=== PATIENT | female | born 1945 | race Caucasian/White ===

== ENCOUNTER → 2020-06-09 11:46 | Outpatient (BNVA) | payer MEDICARE, OTHER, SELFPAY | PROVIDERS: Family Provider Family Medicine; PCP Family Medicine; Visit Provider Internal Medicine Cardiovascular Disease | DX: I48.92 Unspecified atrial flutter (principal); Z51.81 Encounter for therapeutic drug level monitoring; Z79.899 Other long term (current) drug therapy | CPT/HCPCS: 80048; 80162; 83735 ==

== ENCOUNTER 2020-07-30 05:31 | Day surgery (SDC) | payer MEDICARE, OTHER, SELFPAY ==
[2020-07-29 14:34] VITALS: BMI 14.6
[2020-07-30] VITALS (18 sets, daily range): BP systolic 89–140; BP diastolic 64–93; PULSE 77–139; RESP 12–27; TEMP 36.1–36.6; O2SAT 88–100
--- NOTE | 2020-07-30 | CT_ITS ---
Guided Bronchoscopy Planning CT images; total exam DLP: 732.43 mGy-cm MTDD
--- NOTE | 2020-07-30 05:34 | ECG_ITS ---
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 Measurements Intervals [place] Rate: 126 P: AR: QRS: 110 QRSD: 129 T: -61 QT: 319 QTc: 463 Interpretive Statements ATRIAL FIBRILLATION WITH RAPID VENTRICULAR RESPONSE MARKED RIGHT AXIS DEVIATION [QRS AXIS > 100] RIGHT BUNDLE BRANCH BLOCK MODERATE T-WAVE ABNORMALITY, CONSIDER INFERIOR ISCHEMIA Compared to ECG 03/16/2019 21:00:31 Right-axis deviation now present Sinus rhythm no longer present Atrial abnormality no longer present Left posterior fascicular block no longer present T-wave abnormality still present Possible ischemia still present Electronically Signed On 07-30-2020 22:12:09 HARNESSMAKER APPRENTICE by Fany Al M.D. [id number]
--- NOTE | 2020-07-30 05:50 | W.PM.OPSUD ---
Surgery/Procedure H&P Update DATE OF PROCEDURE: July 30, 2020 DATE H&P PERFORMED: 07/27/20 H&P UPDATE INFORMATION: I have reviewed H&P completed within last 30 days, I have examined patient prior to procedure and No changes to prior documentation PREOP DIAGNOSIS: suspected Lung cancer PLANNED PROCEDURE: Bronchoscopy with inspection of the airway, possible endobronchial biopsies, navigational bronchoscopy guided transbronchial biopsy of the left lower lobe lung mass, fine-needle aspiration and Cytobrush, endobronchial sound guided transbronchial needle aspiration of lymph nodes and control of bleeding Ultrasound-guided left-sided thoracentesis. Operation Date: 07/30/20 07:00 Proposed Procedures p Bronchoscopy(Not Applicable) - Reji Rodgers MD s Veran(Not Applicable) - Reji Rodgers MD s Thoracentesis(Not Applicable) - Reji Rodgers MD
[2020-07-30] MEDS: sodium chloride 0.9% 1,000 ML 30 ML IV (06:06)
--- NOTE | 2020-07-30 06:39 | PM.ACPR ---
Procedure/Consent Time out: Time Out Performed: Yes Consent: Consent for Procedure: Consent obtained from patient Procedure Narrative: Name of the procedure: Ultrasound-guided left thoracentesis. Indication: Suspicion for malignant pleural effusion Anesthetics: Local anesthesia with 1% lidocaine. IV pain medication: None. Description of the procedure: The procedure was explained to the patient in detail including the risks and a consent was obtained. The left hemithorax was scanned with ultrasound to find a safe fluid pocket. Moderate free-flowing fluid was noted. There was no complexity. Positive plankton sign. Following identification of the fluid pocket the site was marked. The site was cleaned using sterile technique. Lidocaine 1% was injected into the skin and the subcutaneous tissue. Subsequently, the periosteum in the parietal pleural was also anesthetized using lidocaine. The pleural space was entered in the posterior axillary line in the left eighth intercostal space. Anya-colored fluid was aspirated. About 450 cc of fluid was aspirated Sample: The pleural fluid was sent for cell count and differential, pH, protein, LDH, albumin, Gram stain and culture, fungal stain and culture, AFB stain and culture and cytology. Acute Procedures Epistaxis Control: Time out performed: Yes
--- NOTE | 2020-07-30 06:44 | PC.NURSE ---
Addendum entered by Franci Bangura LPN 07/30/20 07:19: PT TOLERATED PROCEDURE WELL. [address] SCAN Original Note: THORACENTESIS PERFORMED BY DR. CAMARENA. 450 ML FARSHAD FLUID REMOVED. SPECIMENS SENT TO LAB AND TO PATHOLOGIST.
--- NOTE | 2020-07-30 07:01 | ANES.PREANE2 ---
Pre-Anesthetic Assessment Pre-Anesthetic Assessment: Height/Weight: Height 1.57 m Weight 36.287 kg Temp Pulse Resp BP Pulse Ox 97 F L 121 H 16 100/66 100 07/30/20 05:50 07/30/20 05:50 07/30/20 05:50 07/30/20 05:50 07/30/20 05:50 Preop Diagnosis: suspected Lung cancer Proposed Procedure: Operation Date: 07/30/20 07:00 Proposed Procedures p Bronchoscopy(Not Applicable) - Reji Rodgers MD s Veran(Not Applicable) - Reji Rodgers MD s Thoracentesis(Not Applicable) - Reji Rodgers MD Was Beta Cadence taken within 24 hours: Yes Last intake: Intake Last Liquid Date 07/29/20 Last Liquid Time 19:00 Last Solid Date 07/29/20 Last Solid Time 19:00 Social: Social History: Tobacco and No alcohol Exam: Pre-Anes Outpt Exam: alert, oriented x 3 and regular rate & rhythm Additional Exam Findings (including area of procedure): right rhonchi/decreased Airway: Submandibular: WNL Cervical ROM: WNL MP: 2 Dentition: False Pulmonary: Pulmonary: COPD and Cough Comments: Home O2, pleural effusion CV/HEM: CV/HEM: Arrythmia (A.flutter with RVR) Comments: Pulmonary HTN, cor pulmonale : : Chronic renal Insufficiency Musc/skel: Musc/skel: OA/DJD Anesthetic Plan: ASA status: 4 Anesthesia: General Risk of > 500 ml blood loss (7ml/kg in children): No Meds/Allergies Current Medications: Current Medications Generic Name Dose Route Start Last Admin Trade Name Freq PRN Reason Stop Dose Admin Sodium Chloride 1,000 mls @ 30 ml s/hr 07/30/20 06:00 07/30/20 06:06 Sodium Chloride 0.9% IV 30 mls/hr .Q24H MARY GRACE Administration PFSH Anesthesia PFSH: Medical History Atrial flutter COPD (chronic obstructive pulmonary disease) Hypertension Lung mass Family History Other Cancer Emphysema lung Myocardial infarction Social History Smoking and tobacco status: current every day smoker cigarettes Years cigarettes smoked: 50 [ Other cigarette details: Hx of 1.5 PPD ] Quit status (tobacco): considering quitting Smoking risk assessment/counseling performed?: Yes Alcohol intake: never Counseling given: No Counseling given: No Lives independently: Yes Household members: spouse Marital status: Current occupational status: retired History of recent travel: No Current gender identity: Female Data Anesthesia Cardiac Studies: No Data to Display
[2020-07-30 07:17] LABS: Body Fluid Polynuclear #Cells 0.393; Body Fluid WBC 2373 /uL
[2020-07-30 07:21] LABS: Apprearance, Body Fluid CLOUDY; Color, Body Fluid YELLOW
[2020-07-30 07:31] LABS: LDH Pleural Fluid 290 U/L; Total Protein Pleural Fluid 3.7 g/dL
[2020-07-30] MEDS: lidocaine 1% INJ 20 mL XX (07:50)
--- NOTE | 2020-07-30 08:58 | P.OP_ITS ---
Operative Report Date of procedure: July 30, 2020 Pre-op Diagnosis: suspected Lung cancer Post-op diagnosis: same Brief History: This is a 75-year-old lady coming in for bronchoscopic evaluation for suspected lung cancer Procedure: Name of the procedure: Bronchoscopy with inspection of the airway, bronchoalveolar lavage, endobronchial biopsies, endobronchial ultrasound-guided transbronchial needle aspiration of lymph nodes and control of bleeding. Indication: Suspected lung cancer Anesthesia: General anesthesia. Local anesthesia: The vocal cords were anesthetized with 1% lidocaine, 3 mL, the trachea, right and mainstem bronchi anesthetized with 1% lidocaine. Description of the procedure: The procedure was explained to the patient and the consent was obtained. The patient was brought to the OR. The patient underwent laryngeal mask airway placement for general anesthesia. Following induction of general anesthesia, the bronchoscope was advanced through the LMA. The vocal cords appeared normal. The upper and lower lower trachea appeared to be erythematous, no endotracheal lesion was seen. The sol was splayed. The sol, the right and left mainstem bronchi are anesthetized with 1% lidocaine. In a systematic manner bilateral bronchial tree was then examined. There was visible mucus occluding the left mainstem bronchus. The left mainstem bronchus mucus was suctioned out. Irregular mucosa in the left mainstem bronchus with pearly white appearance was noted. The bronchoscope was advanced into the left upper lobe bronchus after all the mucus was cleared out. The left upper lobe, lingular bronchi appeared erythematous without any endobronchial lesion. The bronchoscope was then advanced into the left lower lobe bronchus. There was significant narrowing of the left lower lobe bronchus due to external compression. No endobronchial lesion was identified. There was also significant mucus collection that was cleared out. The left lower lobe bronchi al segments could not be evaluated in detail because of the external compression and narrowing of the openings. The bronchoscope was then introduced into the right mainstem bronchus. The right upper lobe, right middle lobe and right lower lobe bronchi were examined up to the third subsegmental level and no abnormalities were identified. There was diffuse erythema in the right lung. Bronchoalveolar lavage was performed from the left lower lobe. 60 mL of fluid was instilled, 20 mL of bloody fluid was returned. Endobronchial biopsies were performed from the left mainstem bronchus. Multiple samples were obtained. The endobronchial ultrasound was introduced through the LMA. Mediastinal and hilar lymphadenopathy was identified with the ultrasound. Transbronchial needle aspiration was performed from station 7 and 11 L lymph node stations. Samples: 1. Bronchoalveolar lavage specimen was sent for Gram stain and culture, fungal stain and culture, AFB stain and culture and cytology. 2. The endobronchial biopsies are sent for histopathology. 3. The fine-needle aspirations were sent for histopathology. . Complications: There was no immediate complications.
--- NOTE | 2020-07-30 10:02 | SUR.OPER ---
ebus balloon removed intact
--- NOTE | 2020-07-30 10:14 | XR_ITS ---
WS: [id number] Exam: XR chest 1V portable [id number] Date/Time of Exam: 07/30/2020 10:14 AM Reason For Exam: POST OP Comparison 05/24/2018. There is complete white out of the lower two thirds of the left pleural cavity. This may represent co nsolidating pneumonia and/or atelectasis, mass or pleural effusion. There is a left pleural effusion identified. There is also right basal pleural effusion with infiltrate and atelectasis in the right l ower lobe. The heart is probably enlarged. The chest is rotated. No pneumothorax. Regional bony struc tures are unremarkable. XR/XR chest 1V portable [id number] IMPRESSION: 1. Complete white out of the lower two thirds of the left pleural cavity which may be secondary to the atelectasis and/or infiltrate, a mass or extensive pleu ral effusion. 2. Bilateral pleural effusions are visualized. 3. Atelectasis and infiltrate in the right lower lobe. 4. Cardiac enlargement. There may also be some cardiomediastinal shift to the l eft secondary to atelectasis and volume loss of the left lung.
--- NOTE | 2020-07-30 10:24 | ANE.PACU2 ---
Inpatient post-anesthesia follow up: Airway intact: Yes Vital signs: Temperature 97.7 F Pulse Rate 77 Respiratory Rate 16 Blood Pressure 129/64 Pulse Oximetry 94 Oxygen Delivery Me thod Simple Mask Oxygen Flow Rate 8 Fraction of Inspir ed Oxygen Nausea and vomiting: No Pain level: 1 Additional Comments: A little sedated, following commands.
[2020-07-30 10:59] LABS: ABG PH Result 7.21 (7.35-7.45); Arterial Blood Gas Hematocrit 41.4 % (37-47); Base Excess ABG -0.2 mmol/L (-2.0-2.0); Blood Gas Allen Test Pos; Blood Gas Operator Identificat CAK; Blood Gas Sample Site Brachial, right; Blood Gas Sample Type Arterial; Carboxyhemoglobin 1.1 %THgb (0.4-20.1); HCO3 ABG 29.5 mmol/L (22-26); HGB O2 Sat 87.1 % (95-100); Ionized Calcium Level - ABG 1.3 mmol/L (1.1-1.4); Methemoglobin 0.7 % (0.4-1.5); Oxygen Device SIMPLE MASK; Oxygen Saturation ABG 88.7; PO2 ABG 64.5 mmHg (80.0-100.0); Potassium Level - ABG 4.4 mmol/L (3.5-5.0); Total Hemoglobin 13.5 g/dL (12-16)
[2020-07-30 11:00] LABS: ABG PCO2 73.3 mmHg (35-45)
--- NOTE | 2020-08-03 13:25 | PTH.FRZRPT ---
Frozen Section Notes Specimen(s): Lung, left main bronchus, endobronchial biopsy Gross: The specimen is received fresh in a single slide labeled with the patient's name and MRN number and additionally labeled, left main bronchus and is a 1 mm fragment that is submitted for frozen section diagnosis. The fragment is submitted in cassette FS A1. Preliminary Impression: Lung, left main bronchus, endobronchial biopsy: ?Positive for malignancy. - Specimen Information Pathologist: Danielle Riggs Date: 07/30/20 Specimen reported at what time: 08:25 - Clinician Specimen collection time: 08:09 Clinician reported to: Reji Rodgers
--- NOTE | 2020-08-03 13:27 | PTH.EBUS ---
Endobronchial Ultrasound Specimen(s): 3 specimens received, left main bronchus, lymph node station 7, station 11 Gross: The specimens are received on 3 slides labeled with the patient's name and MRN number.'s. Specimen A, left main bronchus . Specimen B, lymph node station 7 . Specimen C, lymph node station 11 . Preliminary Impression: A. Lung, left main bronchus, cytology: ?Positive for malignancy. B. Lymph node, station 7, cytology: ?Positive for malignancy. C. Lymph node, station 11, cytology: ?Positive for malignancy. - Specimen Information Pathologist: Danielle Riggs Date: 07/30/20 Specimen reported at what time: 08:25 - Clinician Specimen collection time: 08:05 Clinician reported to: Reji Rodgers
== END 2020-07-30 12:16 | disposition home or self-care (01) ==
PROVIDERS: PCP Family Medicine; Visit Provider Internal Medicine Critical Care Medicine
PROC: 0BJ08ZZ Inspection of Tracheobronchial Tree, Via Natural or Artificial Opening Endoscopic (ICD-10-PCS; CPT 31622; principal; 2020-07-30 07:00)
PROC: BB4BZZZ Ultrasonography of Pleura (ICD-10-PCS; 2020-07-30 07:00)
DX: C34.90 Malignant neoplasm of unspecified part of unspecified bronchus or lung (principal); J44.9 Chronic obstructive pulmonary disease, unspecified; Z99.81 Dependence on supplemental oxygen; M19.90 Unspecified osteoarthritis, unspecified site; I10 Essential (primary) hypertension; F17.210 Nicotine dependence, cigarettes, uncomplicated; Z79.52 Long term (current) use of systemic steroids; I48.92 Unspecified atrial flutter
CPT/HCPCS: 12345; 31625; 31627; 36600; 71045; 77011; 80051; 80500; 82330; 82805; 82945; 83605; 83615; 83986; 84157; 87015; 87070; 87075; 87077; 87102; 87116; 87186; 87205; 87206; 87801; 88112; 88305; 89050; 93005; J2704; J7030

== ENCOUNTER 2020-08-03 17:07 | Emergency (ER) | payer MEDICARE, OTHER, SELFPAY ==
[2020-08-03 17:30] VITALS: BP 78/50; PULSE 129; RESP 12; TEMP 36.1; O2SAT 92; BMI 15.5
--- NOTE | 2020-08-03 18:16 | XR_ITS ---
WS: [id number] PORTABLE CHEST HISTORY: Arrhythmia. COMPARISON: 07/30/2020 Chronic emphysema. Bilateral pleural effusions. Moderate LEFT pleural effusion has improved slightly since the prior study. There is a small RIGHT pleural effusion which may have slightly increased. Com pressive atelectasis at the lung bases from the effusions. Cardiac size: Silhouette is obscured by the effusions. Mediastinum/Aorta: Moderate atherosclerosis aorta. No osseous abnormality seen. XR/XR chest 1V portable [id number] IMPRESSION: 1. Moderate LEFT and small RIGHT pleural effusions. 2. Chronic emphysema.
--- NOTE | 2020-08-03 19:08 | W.ED.ARRPALP ---
HPI - Arrhythmia/Palpitations General: Chief Complaint: Arrhythmia/Palpitations Stated Complaint: IRREGULAR HEARTBEAT, DEHYDRATED Time Seen by Provider: 08/03/20 18:49 Source: patient and family Mode of arrival: ambulatory Limitations: no limitations History of Present Illness: HPI narrative: Patient is a 75-year-old female who states that she had a lung biopsy along with fluid drained last week and is found out it is cancerous. She states she been having increasing weakness and more shortness of breath. She denies any fevers. Patient is very frail appearing and ill-appearing. Patient is on 3 L oxygen at baseline and is on 4 L here. She denies any worsening improving factors. Dr. Rodgers is her nuclear medical technologist. [facility] ED PFSH: Medical History Atrial flutter COPD (chronic obstructive pulmonary disease) Hypertension Lung mass Family History Other Cancer Emphysema lung Myocardial infarction Social History Smoking and tobacco status: current every day smoker cigarettes Years cigarettes smoked: 50 [ Other cigarette details: Hx of 1.5 PPD ] Quit status (tobacco): considering quitting Smoking risk assessment/counseling performed?: Yes Alcohol intake: never Counseling given: No Counseling given: No Lives independently: Yes Household members: spouse Marital status: Current occupational status: retired History of recent travel: No Current gender identity: Female Physical Exam Const: COMMON NORMALS: patient oriented x3 GENERAL APPEARANCE: ill appearing and frail appearing HENMT: COMMON NORMALS: normocephalic and atraumatic HEAD & SCALP: normocephalic and atraumatic Eye: COMMON NORMALS: Equal, round and reactive pupils present and EOMs intact bilaterally PUPIL: Yes Equal, round and reactive pupils present Neck/C-Spine: COMMON NORMALS: full ROM and supple Chest: COMMONS NORMALS: normal inspection of the chest and normal palpation of entire chest wall Resp: COMMON NORMALS: No retractions and No use of accessory muscles AUSCULTATION: rales and rhonchi Cardio: COMMON NORMALS: regular rhythm and No murmurs present (Cardio) RATE: tachycardic RHYTHM: regular rhythm GI: COMMON NORMALS: Normal to inspection, nondistended, normoactive bowel sounds present, Soft to palpation, non-tender and no masses PALPATION: Yes Soft to palpation Extremity: COMMON NORMALS: normal to inspection and full ROM Neuro: COMMON NORMALS: patient oriented x3, moves all extremities and no focal motor deficits Psych: COMMON NORMALS: mental status grossly normal, Normal thought process present and cooperative THOUGHT PROCESS: Normal thought process present Skin: COMMON NORMALS: no rashes or lesions noted and no wounds GENERAL SKIN EXAM: no rashes or lesions noted Course Vital Signs: Vital signs: Vital Signs Temperature 96.9 F L 08/03/20 17:30 Pulse Rate 139 H 08/03/20 19:45 Respiratory Rate 32 H 08/03/20 19:45 Blood Pressure 87/67 08/03/20 19:45 Pulse Oximetry 96 08/03/20 19:45 MDM - Arrhythmia/Palpitations MDM Narrative: Medical decision making narrative: Gladys presents here with dyspnea. I spoke to Dr. Rodgers and patient likely has stage IV lung cancer. I spoke to her her family and her at length and informed her of the diagnosis and I spoke to Dr. Rodgersabout her likely prognosis and that it is very very poor. I did give patient family options of admitting and also spoke to them about hospice. Patient would like to go home and to be set up on hospice which I believe is the appropriate choice. Lab Data: Labs: Lab Results 08/03/20 08/03/20 08/03/20 Range/Units 19:20 19:20 19:20 WBC 11.1 H (4.0-10.0) 10^3/ uL RBC 4.14 (4.1-5.3) 10^6/u L Hgb 13.8 (11.5-15.3) g/dL Hct 44.2 (37.0-47.0) % MCV 106.8 H (81-99) fL MCH 33.3 (28.0-34.0) pg MCHC 31.2 (30.0-36.0) g/dL RDW 14.2 (12.1-15.1) % Plt Count 462 H (130-400) 10^3/c mm MPV 10.0 (7.4-10.4) fL Neut % (Auto) 92.0 % Lymph % (Auto) 3.0 % Citrus % (Auto) 3.0 % Eos % (Auto) 0.9 % Baso % (Auto) 0.4 % Neut # (Auto) 10.24 H (1.8-7.7) 10^3/u L Lymph # (Auto) 0.3 L (0.8-4.8) 10^3/u L Citrus # (Auto) 0.3 (0.2-0.9) 10^3/u L Eos # (Auto) 0.1 (0.0-0.8) 10^3/u L Baso # (Auto) 0.0 (0.0-0.1) 10^3/u L Nucleated RBC % (a uto) 0.2 % Nucleated RBCs # 0.0 /100WBC PT 20.40 H (12.1-14.9) SECO NDS INR 1.69 H (0.8-1.2) Sodium 140 (136-145) mmol/L Potassium 5.1 (3.5-5.1) mmol/L Chloride 98 (98-107) mmol/L Carbon Dioxide 30 H (22-29) mmol/L Anion Gap 17.1 (5-19) BUN 38 H (8-23) mg/dL Creatinine 0.7 (0.5-0.9) mg/dL GFR Calculation Not Reportable Glucose 116 H (65-115) mg/dL Calculated Osmolal ity 300 H (285-295) mOsm/k g Lactate (0.5-2.2) mmol/L Calcium 9.1 (8.5-10.5) mg/dL Total Bilirubin 0.4 (0.15-1.2) mg/dL AST 21 (0-32) U/L ALT 24 (0-33) U/L Alkaline Phosphata se 70 (35-105) IU/L Troponin T Baselin e (0-10) ng/L Total Protein 6.0 L (6.6-8.7) g/dL Albumin 3.3 L (3.5-5.2) g/dL Globulin 2.7 (1.3-4.6) g/dL 08/03/20 08/03/20 Range/Units 19:20 19:20 WBC (4.0-10.0) 10^3/ uL RBC (4.1-5.3) 10^6/u L Hgb (11.5-15.3) g/dL Hct (37.0-47.0) % MCV (81-99) fL MCH (28.0-34.0) pg MCHC (30.0-36.0) g/dL RDW (12.1-15.1) % Plt Count (130-400) 10^3/c mm MPV (7.4-10.4) fL Neut % (Auto) % Lymph % (Auto) % Citrus % (Auto) % Eos % (Auto) % Baso % (Auto) % Neut # (Auto) (1.8-7.7) 10^3/u L Lymph # (Auto) (0.8-4.8) 10^3/u L Citrus # (Auto) (0.2-0.9) 10^3/u L Eos # (Auto) (0.0-0.8) 10^3/u L Baso # (Auto) (0.0-0.1) 10^3/u L Nucleated RBC % (a uto) % Nucleated RBCs # /100WBC PT (12.1-14.9) SECO NDS INR (0.8-1.2) Sodium (136-145) mmol/L Potassium (3.5-5.1) mmol/L Chloride (98-107) mmol/L Carbon Dioxide (22-29) mmol/L Anion Gap (5-19) BUN (8-23) mg/dL Creatinine (0.5-0.9) mg/dL GFR Calculation Glucose (65-115) mg/dL Calculated Osmolal ity (285-295) mOsm/k g Lactate 1.8 (0.5-2.2) mmol/L Calcium (8.5-10.5) mg/dL Total Bilirubin (0.15-1.2) mg/dL AST (0-32) U/L ALT (0-33) U/L Alkaline Phosphata se (35-105) IU/L Troponin T Baselin e 52 H (0-10) ng/L Total Protein (6.6-8.7) g/dL Albumin (3.5-5.2) g/dL Globulin (1.3-4.6) g/dL Discharge Plan Discharge Patient Disposition: Home Clinical Impression: Lung mass Condition: Stable Prescriptions: New Ativan 1 mg tablet 1 mg PO Q8H PRN (Reason: anxiety) Qty: 14 RF: 0 [place] 5-325 mg tablet 1 tab PO Q6H PRN (Reason: pain) Qty: 14 RF: 0 No Action amlodipine 2.5 mg tablet 2.5 mg PO DAILY@0700 RF: 0 multivitamin Tablet 1 tab PO DAILY RF: 0 chlordiazepoxide HCl 5 mg capsule 5 mg PO Q12H PRN (Reason: Anxiety) RF: 0 ascorbic acid (vitamin C) 1 tab PO DAILY@0700 RF: 0 vit C,W-Ek-hbfld-lutein-zeaxan 1 cap PO DAILY RF: 0 budesonide 0.5 mg/2 mL suspension for nebulization 0.5 mg inhalation BID@0700,1900 RF: 0 prednisone 10 mg tablet 10 mg PO DAILY@0700 RF: 0 nicotine 21 mg/24 hr patch 24 hour 1 patch transdermal DAILY RF: 0 hydrocodone-acetaminophen [[place]] 10-325 mg tablet 1 tab PO Q6H PRN (Reason: Pain) RF: 0 cyanocobalamin (vitamin B-12) 1,000 mcg/mL solution 1,000 mcg IM Q30D RF: 0 Stiolto Respimat 2.5-2.5 mcg/actuation mist 2 puff inhalation Q24H 30 Days Qty: 4 RF: 3 metoprolol tartrate 100 mg tablet 100 mg PO Q12H RF: 0 Augmentin 875-125 mg tablet 1 tab PO BID@0700,1900 RF: 0 Eliquis 5 mg tablet 5 mg PO BID@0700,1900 RF: 0 Discharge Orders: Discharge ED (Routine); Ordered 08/03/20 Ordered By: Aysha Haddad Referrals: Es Cueto DO [Primary Care Provider] - 1-3 days Discharge Diet: Advance as tolerated Discharge Activity: Resume usual activity Patient Instructions: Lung Cancer (ED) Coding Level of Care Code ED 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
[2020-08-03] MEDS: sodium chloride 0.9% 1,000 ML 999 ML IV ×2 (19:22→19:45)
[2020-08-03 19:23] VITALS: BP 90/57; PULSE 140; RESP 19; O2SAT 97
[2020-08-03 19:44] LABS: Basophils % 0.4 %; Eosinophils # 0.1 10^3/uL (0.0-0.8); Eosinophils % 0.9 %; Hematocrit 44.2 % (37.0-47.0); Hemoglobin 13.8 g/dL (11.5-15.3); Lymphocytes # 0.3 10^3/uL (0.8-4.8); Mean Corpuscular HGB Conc 31.2 g/dL (30.0-36.0); Mean Corpuscular Hemoglobin 33.3 pg (28.0-34.0); Mean Corpuscular Volume 106.8 fL (81-99); Monocytes # 0.3 10^3/uL (0.2-0.9); Neutrophils # 10.24 10^3/uL (1.8-7.7); Nucleated Red Blood Cells % 0.2 %; Platelet Count 462 10^3/cmm (130-400); Red Blood Count 4.14 10^6/uL (4.1-5.3); Red Cell Distribution Width 14.2 % (12.1-15.1); White Blood Count 11.1 10^3/uL (4.0-10.0)
[2020-08-03 19:45] VITALS: BP 87/67; PULSE 139; RESP 32; O2SAT 96
[2020-08-03 19:55] LABS: INR 1.69 (0.8-1.2)
[2020-08-03 20:03] LABS: Lactate (Lactic Acid level) 1.8 mmol/L (0.5-2.2)
[2020-08-03 20:04] LABS: Alanine Aminotransferase 24 U/L (0-33); Albumin Level 3.3 g/dL (3.5-5.2); Alkaline Phosphatase 70 IU/L (35-105); Aspartate Amino Transferase 21 U/L (0-32); Blood Urea Nitrogen 38 mg/dL (8-23); Calcium 9.1 mg/dL (8.5-10.5); Carbon Dioxide 30 mmol/L (22-29); Chloride 98 mmol/L (98-107); Creatinine Clr Calc Pharmacy 36.4131; Globulin 2.7 g/dL (1.3-4.6); Glucose 116 mg/dL (65-115); Osmolality Calculated 300 mOsm/kg (285-295); Sodium 140 mmol/L (136-145); Total Bilirubin 0.4 mg/dL (0.15-1.2)
[2020-08-03 20:05] LABS: Troponin(5th) Baseline 52 ng/L (0-10)
[2020-08-03 20:13] LABS: Anion Gap 17.1 (5-19)
[2020-08-03 20:14] LABS: Potassium 5.1 mmol/L (3.5-5.1)
[2020-08-03 21:35] LABS: Troponin 5 2HR 41.08 ng/L (0-10)
[2020-08-03] MEDS: HYDROcodone-acetaminophen 5-325 mg Tablet 1 TAB PO (21:52)
[2020-08-03] MEDS: LORazepam 1 mg Tablet PO ×2 (21:52)
[2020-08-03 22:01] VITALS: BP 108/92; PULSE 151; RESP 40; TEMP 36.4; O2SAT 96
--- NOTE | 2020-08-04 08:57 | DCPLANNER ---
retail sales manager had message to speak with patients family about hospice and which company the family would like to use. retail sales manager called and spoke with patients , when asked which hospice company the family would like to use, patients stated that the family would like to use the [facility] hospice company. retail sales manager called Jona at [facility], to give the referral to hospice. Jona stated that she would pull the patients information, and would call the patients family. retail sales manager filled out [employer], with a verbal from the patients to use [facility] Home Care, had this scanned into chart.
== END 2020-08-03 22:03 | disposition home or self-care (01) ==
PROVIDERS: Emergency Provider Emergency Medicine; PCP Family Medicine
DX: R91.8 Other nonspecific abnormal finding of lung field (principal); Z79.01 Long term (current) use of anticoagulants; J44.9 Chronic obstructive pulmonary disease, unspecified; I10 Essential (primary) hypertension; F17.210 Nicotine dependence, cigarettes, uncomplicated
CPT/HCPCS: 12345; 36415; 71045; 80053; 83605; 84484; 85025; 85610; 96374; 96375; 96376; 99283; 99284; J7030